=== PATIENT | female | born 1980 | race Two or more races ===

== ENCOUNTER 2022-07-26 09:53 | Emergency (ER) | payer OTHER ==
[~2022-07-26] VITALS: Ht 172.7 cm; Wt 65.8 kg
[~2022-07-26 09:53] MED LIST: NO MEDS
--- NOTE | 2022-07-26 10:12 | NUR ---
URINE COLLECTED AND SENT
--- NOTE | 2022-07-26 10:38 | NUR ---
US at Bedside
--- NOTE | 2022-07-26 11:05 | NUR ---
IV CATHETER PLACED ON LEFT AC, BLOOD DRAWN Addendum: 07/26/22 at 1117 by [email or web address] [id number]
--- NOTE | 2022-07-26 11:46 | NUR ---
Dr Duran i to update and discuss PC - Awaiting Test results. VSS. Status quo. NO active Bleeding at this time states "i'm doing ok"
[2022-07-26 12:01] LABS: BASOPHILS % (AUTO) 0.9 % (0.0-2.0); HEMATOCRIT 38 % (33-45); HEMOGLOBIN 12.7 g/dL (11.5-14.8); LYMPHOCYTES % (AUTO) 25.6 % (20.0-44.0); MEAN CORPUSCULAR HGB CONC 33 g/dl (31.0-36.0); MEAN CORPUSCULAR VOLUME 105 fL (82-100); MONOCYTES # (AUTO) 0.2 K/uL (0.1-1.30); MONOCYTES % (AUTO) 5.6 % (2.0-12.0); NEUTROPHILS # (AUTO) 2.7 K/uL (1.8-8.9); NEUTROPHILS % (AUTO) 66.9 % (43.0-81.0); PLATELET COUNT (AUTO) 274 K/uL (150-450); RED BLOOD CELL COUNT(AUTO) 3.67 MIL/uL (4.0-5.2)
[2022-07-26 12:09] LABS: CALCIUM, SERUM 9.1 mg/dL (8.5-10.1); CREATININE 0.9 mg/dL (0.6-1.3); POTASSIUM 3.6 mmol/L (3.5-5.1)
[2022-07-26 12:25] VITALS: BP 116/73
== END 2022-07-26 12:25 | disposition home or self-care (01) ==
LOC: ER 10:05
DX: N93.9 Abnormal uterine and vaginal bleeding, unspecified (principal)
CPT/HCPCS: 36415; 76856-TC; 80048-TC; 84703-TC; 85025-TC; 86850-TC